=== PATIENT | female | born 1970 | race Caucasian/White ===

== ENCOUNTER → 2019-09-14 09:00 | Outpatient (BNVA) | payer BC, SELFPAY | PROVIDERS: Family Provider Internal Medicine; Visit Provider Nurse Practitioner Family | DX: R05 Cough (principal); R50.9 Fever, unspecified | CPT/HCPCS: 87400; 87635 ==

== ENCOUNTER 2019-09-16 12:31 | Emergency (ER) | payer BC, SELFPAY ==
[2019-09-16 12:32] VITALS: BP 147/98; PULSE 100; RESP 20; TEMP 36.7; O2SAT 100; BMI 23.0
--- NOTE | 2019-09-16 12:41 | XRR_ITS ---
PROCEDURE INFORMATION: Exam: XR Chest, 1 View Exam date and time: 09/16/2019 1:51 PM Age: 49 years old Clinical indication: Cough and fever and shortness of breath; Patient HX: C/O fever, nonproductive cough. Tested positive for covid along with ; Additional info: Covid - 19 TECHNIQUE: Imaging protocol: XR of the chest Views: 1 view. COMPARISON: CR Chest 2 views* [id number] 04/17/2014 2:30 PM FINDINGS: Lungs: Unremarkable. No consolidation. Pleural space: Unremarkable. No pleural effusion. No pneumothorax. Heart/Mediastinum: Unremarkable. No cardiomegaly. Bones/joints: Unremarkable. XR/XR chest 1V portable [id number] IMPRESSION: No acute findings.
--- NOTE | 2019-09-16 12:49 | W.ED.GENADLT ---
HPI - General Adult General: Chief complaint: General Medical Stated complaint: SYMPTOMATIC COVID 19 Time Seen by Provider: 09/16/19 12:41 History of Present Illness: HPI narrative: 49-year-old female who was tested positive yesterday for COVID. She comes in today complaining of fever and cough. Her initial symptoms began 7 days ago she has a nonproductive cough she is getting progressively worse she feels like she cannot take a deep breath like she has a heavy sensation in her chest she has not been able to cough anything up although it feels like she needs to. She has no chronic respiratory problems. She is non-smoker. Her exposure was at a local camp where she had camped out for the weekend with several friends with several other COVID-19 positive patients including her . She is also had some diarrhea and nosocomial. Onset (ago): day(s) (6) Location: chest Radiation: non-radiation Severity: severe Quality: dull (Chest heaviness) Relieving factors: none Exacerbating factors: none Associated symptoms: Reports chest pain, cough, diaphoresis, dyspnea, fevers/chills, headache(s), nausea and other (Nosocomial); Deny rash Treatments prior to arrival: none Review of Systems Const: Reports: diaphoresis ENMT: Denies: throat pain, ear or mastoid pain, nasal discharge or nasal congestion Card: Reports: chest pain and dyspnea on exertion; Denies: edema or orthopnea Resp: Reports: dyspnea and non-productive cough; Denies: productive cough GI: Reports: nausea and diarrhea : Denies: flank pain, difficulty voiding, dysuria, urinary frequency or urinary urgency Skin/Breast: Denies: rash or pruritus Neuro: Reports: headache(s) PFSH ED PFSH: Medical History (Updated 09/17/19 @ 11:38 by Zelda Mac APRN) Calculus of kidney and ureter Hypercholesteremia Hypertension Recurrent UTI Surgical History H/O lithotripsy History of bilateral carpal tunnel release History of ureter stent Hx of hysterectomy Hx of non-cataract eye surgery Hx of tonsillectomy Family History Sister Cancer Hypertension Mother Diabetes Hypertension Father Lung disease Social History Smoking and tobacco status: never smoked Alcohol intake: unknown Adopted: No Caregiver/support person: No Lives independently: No Household members: spouse Marital status: Current occupational status: employed History of recent travel: No Current gender identity: Female Physical Exam Const: COMMON NORMALS: no acute distress GENERAL APPEARANCE: cooperative and comfortable ORIENTATION/CONSCIOUSNESS: Yes awake, Yes oriented to person, Yes oriented to place and Yes oriented to time HENMT: COMMON NORMALS: normocephalic, atraumatic, hearing grossly normal bilaterally, external ears normal, EAC's normal, TM's normal bilaterally, Normal nasal mucous membranes and turbinates present, moist oral mucous membranes and oropharynx normal HEAD & SCALP: normocephalic and atraumatic NOSE: Normal nasal mucous membranes and turbinates present EXTERNAL EAR: Yes external ears normal EXTERNAL AUDITORY CANAL: EAC's normal TYMPANIC MEMBRANE: TM's normal bilaterally Eye: COMMON NORMALS: Equal, round and reactive pupils present, EOMs intact bilaterally, conjunctivae normal and no scleral icterus CONJUNCTIVA: Yes conjunctivae normal PUPIL: Yes Equal, round and reactive pupils present Neck/C-Spine: COMMON NORMALS: full ROM, no lymphadenopathy and supple Lymph: LYMPHATIC: no lymphadenopathy noted and no lymphedema noted Resp: AUSCULTATION: wheezes (Slightly more increased at the bases) and diminished lung sounds Cardio: COMMON NORMALS: No murmurs present (Cardio) RATE: tachycardic GI: COMMON NORMALS: Soft to palpation and No hepatosplenomegaly present AUSCULTATION: Yes normoactive bowel sounds PALPATION: Yes Soft to palpation, No Tenderness to palpation present (GI), No Guarding due to palpation present (GI) and Yes No hepatosplenomegaly present Extremity: COMMON NORMALS: normal to inspection, capillary refill normal, no clubbing, cyanosis or edema, no calf tenderness and no pedal edema Neuro: SENSORIUM/ORIENTATION: Yes oriented to person, Yes oriented to place and Yes oriented to time Skin: COMMON NORMALS: no rashes or lesions noted GENERAL SKIN EXAM: no rashes or lesions noted Course Vital Signs: Vital signs: Vital Signs Temperature 98.0 F 09/16/19 12:32 Pulse Rate 97 09/16/19 15:46 Respiratory Rate 18 09/16/19 15:46 Blood Pressure 121/83 09/16/19 15:46 Pulse Oximetry 98 09/16/19 15:46 MDM - General Adult MDM Narrative: Medical decision making narrative: Findings the patient and that she can be safely treated as an outpatient we will go ahead and discharge her home start her on albuterol inhaler to use PRN as well as dexamethasone 2 mg p.o. twice daily for 5 days. She should self quarantine for the next 14 days she absolutely has to leave her home she should wear a mask be preferable if she did not we will set up a follow-up telehealth visit with her tomorrow. Due to a problem with the EMR the dexamethasone was on her discharge instructions but was not on our prescribed scription list on my EMR note. See the discharge instructions which show the dexamethasone was prescribed. Lab Data: Labs: Lab Results 09/16/19 09/16/19 09/16/19 Range/Units 12:48 13:08 13:08 WBC 6.4 (4.0-10.0) 10^3/ uL RBC 4.12 (4.1-5.3) 10^6/u L Hgb 13.1 (11.5-15.3) g/dL Hct 38.8 (37.0-47.0) % MCV 94.2 (81-99) fL MCH 31.8 (28.0-34.0) pg MCHC 33.8 (30.0-36.0) g/dL RDW 12.4 (12.1-15.1) % Plt Count 235 (130-400) 10^3/c mm MPV 9.8 (7.4-10.4) fL Neut % (Auto) 50.5 % Lymph % (Auto) 37.3 % Nicholas % (Auto) 10.2 % Eos % (Auto) 1.6 % Baso % (Auto) 0.2 % Neut # (Auto) 3.21 (1.8-7.7) 10^3/u L Lymph # (Auto) 2.4 (0.8-4.8) 10^3/u L Nicholas # (Auto) 0.7 (0.2-0.9) 10^3/u L Eos # (Auto) 0.1 (0.0-0.8) 10^3/u L Baso # (Auto) 0.0 (0.0-0.1) 10^3/u L Nucleated RBC % (a uto) 0 % Nucleated RBCs # 0.0 /100WBC PT 11.80 (10.5-13.3) SECO NDS INR 0.85 (0.8-1.2) APTT 26.9 (23.9-36.7) SECO NDS Fibrinogen 308 (184-529) mg/dL D-Dimer 0.18 (0-0.59) ug/mIFE U Specimen Type Arterial Sample Site Radial, left ABG pH 7.39 (7.35-7.45) ABG pCO2 33.4 L (35-45) mmHg ABG pO2 100.0 (80.0-100.0) mmH g ABG HCO3 20.1 L (22-26) mmol/L ABG Base Excess -4.1 L (-2.0-2.0) mmol/ L Félix Test Pos Hematocrit 41.8 (37-47) % O2 Delivery Device Room air FiO2 21.0 % Electric Arc Furnace Operator ID cak Sodium (136-145) mmol/L Potassium (3.5-5.1) mmol/L Chloride (98-107) mmol/L Carbon Dioxide (22-29) mmol/L Anion Gap (5-19) BUN (6-20) mg/dL Creatinine (0.5-0.9) mg/dL GFR Calculation (90-130) mL/min Glucose (65-115) mg/dL Calculated Osmolal ity (285-295) mOsm/k g Lactic Acid (0.5-2.2) mmol/L Calcium (8.5-10.5) mg/dL Ferritin (15-150) ng/mL Total Bilirubin (0.15-1.2) mg/dL AST (0-32) U/L ALT (0-33) U/L Alkaline Phosphata se (35-105) IU/L Lactate Dehydrogen ase (135-214) U/L C-Reactive Protein (0.0-4.9) mg/L Total Protein (6.6-8.7) g/dL Albumin (3.5-5.2) g/dL Globulin (1.3-4.6) g/dL Procalcitonin (0-0.5) ng/mL 09/16/19 09/16/19 Range/Units 13:08 13:08 WBC (4.0-10.0) 10^3/ uL RBC (4.1-5.3) 10^6/u L Hgb (11.5-15.3) g/dL Hct (37.0-47.0) % MCV (81-99) fL MCH (28.0-34.0) pg MCHC (30.0-36.0) g/dL RDW (12.1-15.1) % Plt Count (130-400) 10^3/c mm MPV (7.4-10.4) fL Neut % (Auto) % Lymph % (Auto) % Nicholas % (Auto) % Eos % (Auto) % Baso % (Auto) % Neut # (Auto) (1.8-7.7) 10^3/u L Lymph # (Auto) (0.8-4.8) 10^3/u L Nicholas # (Auto) (0.2-0.9) 10^3/u L Eos # (Auto) (0.0-0.8) 10^3/u L Baso # (Auto) (0.0-0.1) 10^3/u L Nucleated RBC % (a uto) % Nucleated RBCs # /100WBC PT (10.5-13.3) SECO NDS INR (0.8-1.2) APTT (23.9-36.7) SECO NDS Fibrinogen (184-529) mg/dL D-Dimer (0-0.59) ug/mIFE U Specimen Type Sample Site ABG pH (7.35-7.45) ABG pCO2 (35-45) mmHg ABG pO2 (80.0-100.0) mmH g ABG HCO3 (22-26) mmol/L ABG Base Excess (-2.0-2.0) mmol/ L Félix Test Hematocrit (37-47) % O2 Delivery Device FiO2 % Electric Arc Furnace Operator ID Sodium 141 (136-145) mmol/L Potassium 3.7 (3.5-5.1) mmol/L Chloride 107 (98-107) mmol/L Carbon Dioxide 22 (22-29) mmol/L Anion Gap 15.7 (5-19) BUN 16 (6-20) mg/dL Creatinine 0.8 (0.5-0.9) mg/dL GFR Calculation 76.2 L (90-130) mL/min Glucose 82 (65-115) mg/dL Calculated Osmolal ity 287 (285-295) mOsm/k g Lactic Acid 0.6 (0.5-2.2) mmol/L Calcium 9.4 (8.5-10.5) mg/dL Ferritin 168 H (15-150) ng/mL Total Bilirubin 0.3 (0.15-1.2) mg/dL AST 19 (0-32) U/L ALT 20 (0-33) U/L Alkaline Phosphata se 63 (35-105) IU/L Lactate Dehydrogen ase 157 (135-214) U/L C-Reactive Protein 0.8 (0.0-4.9) mg/L Total Protein 7.0 (6.6-8.7) g/dL Albumin 4.3 (3.5-5.2) g/dL Globulin 2.7 (1.3-4.6) g/dL Procalcitonin 0.05 (0-0.5) ng/mL Discharge Plan Discharge Patient Disposition: Home, Self-Care Clinical Impression: Acute bronchitis due to COVID-19 virus Condition: Stable Prescriptions: New albuterol sulfate 90 mcg/actuation HFA aerosol inhaler 2 inh INHALATION Q4H PRN (Reason: shortness of breath or wheezing) Qty: 18 RF: 0 No Action bupropion HCl [Wellbutrin XL] 300 mg tablet extended release 24 hr 300 mg PO QAM RF: 0 alprazolam [Xanax] 0.5 mg tablet 0.5 mg PO TID PRN (Reason: unknown) RF: 0 thyroid (pork) [FILLING MIXER Thyroid] 120 mg tablet 120 mg PO DAILY RF: 0 cholecalciferol (vitamin D3) 10,000 unit tablet 10,000 unit PO DAILY RF: 0 fluticasone propionate [Flonase Allergy Relief] 50 mcg/actuation spray,suspension 2 spray INTRANASAL DAILY Qty: 16 RF: 0 benzonatate [Tessalon Perles] 100 mg capsule 100 mg PO TID PRN (Reason: cough) 7 Days Qty: 20 RF: 0 dextromethorphan-guaifenesin 60-1,200 mg tablet extended release 12 hr 1 tab PO Q12H 7 Days Qty: 14 RF: 0 topiramate 100 mg tablet 100 mg PO BID 30 Days Qty: 60 RF: 3 azithromycin 250 mg tablet See Rx Instructions PO .COMPLEX Qty: 6 RF: 0 Multiple Vitamins Tablet 1 tab PO DAILY RF: 0 phentermine 37.5 mg tablet 37.5 mg PO DAILY RF: 0 Cbd Oil 1 drp PO DAILY RF: 0 biotin 1 cap PO DAILY RF: 0 lisinopril 20 mg tablet 20 mg PO DAILY RF: 0 Discharge Orders: Discharge Order (Routine); Ordered 09/16/19 Ordered By: John Shaw Referrals: Bean Quintero MD [Physician] - (COVID-19 followup) Activity Restrictions/Additional Instructions: You should remain self quarantined until released by physician. Start the dexamethasone twice daily for 5 days albuterol inhaler as needed for shortness of breath and cough. If your breathing significantly worsens return to the emergency room. If you do need to return to the emergency room or call 911 please call ahead to inform personnel that you have tested positive for COVID-19. If you must leave your home for any reason please wear a mask. Discharge Date/Time: 09/16/19 15:46 Coding Level of Care Code ED Restoration Technician for Chg Fwd Exam Comprehensive
[2019-09-16 12:59] LABS: ABG PCO2 33.4 mmHg (35-45); ABG PH Result 7.39 (7.35-7.45); Arterial Blood Gas Hematocrit 41.8 % (37-47); Base Excess ABG -4.1 mmol/L (-2.0-2.0); Blood Gas Allen Test Pos; Blood Gas Sample Site Radial, left; Blood Gas Sample Type Arterial; HCO3 ABG 20.1 mmol/L (22-26); Oxygen Device ROOM AIR
[2019-09-16] MEDS: ondansetron 2 mg/ML SDV 2 mL 4 MG IV (13:01)
[2019-09-16 13:15] VITALS: O2SAT 100
--- NOTE | 2019-09-16 13:22 | PC.NURSE ---
pt refuses FLU swab to be collected. ED physician notified.
[2019-09-16 13:29] LABS: Basophils % 0.2 %; Eosinophils # 0.1 10^3/uL (0.0-0.8); Eosinophils % 1.6 %; Hematocrit 38.8 % (37.0-47.0); Hemoglobin 13.1 g/dL (11.5-15.3); Lymphocytes # 2.4 10^3/uL (0.8-4.8); Lymphocytes % 37.3 %; Mean Corpuscular HGB Conc 33.8 g/dL (30.0-36.0); Mean Corpuscular Hemoglobin 31.8 pg (28.0-34.0); Mean Corpuscular Volume 94.2 fL (81-99); Mean Platelet Volume 9.8 fL (7.4-10.4); Monocytes # 0.7 10^3/uL (0.2-0.9); Monocytes % 10.2 %; Neutrophils # 3.21 10^3/uL (1.8-7.7); Neutrophils % 50.5 %; Nucleated Red Blood Cells % 0 %; Platelet Count 235 10^3/cmm (130-400); Red Blood Count 4.12 10^6/uL (4.1-5.3); Red Cell Distribution Width 12.4 % (12.1-15.1); White Blood Count 6.4 10^3/uL (4.0-10.0)
[2019-09-16 13:46] LABS: Fibrinogen 308 mg/dL (184-529); Lactic Sepsis W/Reflex 0.6 mmol/L (0.5-2.2)
[2019-09-16 14:23] LABS: D Dimer 0.18 ug/mIFEU (0-0.59); INR 0.85 (0.8-1.2); Partial Thromboplastin Time 26.9 SECONDS (23.9-36.7)
[2019-09-16 14:38] LABS: Procalcitonin 0.05 ng/mL (0-0.5)
[2019-09-16 14:49] LABS: Alanine Aminotransferase 20 U/L (0-33); Albumin Level 4.3 g/dL (3.5-5.2); Alkaline Phosphatase 63 IU/L (35-105); Aspartate Amino Transferase 19 U/L (0-32); Blood Urea Nitrogen 16 mg/dL (6-20); C Reactive Protein 0.8 mg/L (0.0-4.9); Calcium 9.4 mg/dL (8.5-10.5); Carbon Dioxide 22 mmol/L (22-29); Chloride 107 mmol/L (98-107); Ferritin 168 ng/mL (15-150); Globulin 2.7 g/dL (1.3-4.6); Glomerular Filtration Rate 76.2 mL/min (90-130); Glucose 82 mg/dL (65-115); Osmolality Calculated 287 mOsm/kg (285-295); Sodium 141 mmol/L (136-145); Total Bilirubin 0.3 mg/dL (0.15-1.2)
[2019-09-16 14:50] LABS: Anion Gap 15.7 (5-19)
[2019-09-16 14:51] LABS: Lactate Dehydrogenase 157 U/L (135-214); Potassium 3.7 mmol/L (3.5-5.1)
[2019-09-16 15:46] VITALS: BP 121/83; PULSE 97; RESP 18; O2SAT 98
== END 2019-09-16 15:46 | disposition home or self-care (01) ==
PROVIDERS: Emergency Provider Family Medicine; PCP Internal Medicine
DX: U07.1 COVID-19 (principal); J20.8 Acute bronchitis due to other specified organisms; I10 Essential (primary) hypertension
CPT/HCPCS: 12345; 36600; 71045; 80053; 82728; 82803; 83605; 83615; 84145; 85025; 85378; 85384; 85610; 85730; 86140; 87040; 96374; 99282; 99283; J2405

== ENCOUNTER 2019-10-25 10:02 | Outpatient (CLI) | payer BC, SELFPAY ==
--- NOTE | 2019-10-25 12:15 | XR_ITS ---
WS: [id number] EXAM: ABDOMINAL KUB DATE OF EXAMINATION: 10/25/2019, 1016 hours COMPARISON: Abdominal KUB from 02/19/2018 HISTORY: Patient is 49 years old with calculus of the kidney appears FINDINGS: Bowel gas pattern is normal. Moderate amount of stool. No calcifications are seen to suggest renal or ureteral calculi. Calcification in the right false pelvis overlying the lateral mid sacrum is most l ikely a phlebolith noted on prior imaging. Solid organ silhouettes do not appear enlarged. Slight sco liosis in the spine with slight arthritis noted. XR/XR KUB [id number] IMPRESSION: No calcification seen to suggest renal or ureteral calculi.
== END 2019-10-25 10:03 | disposition home or self-care (01) ==
LOC: RAD 10:06
PROVIDERS: PCP Internal Medicine; Visit Provider Urology
DX: N20.2 Calculus of kidney with calculus of ureter (principal)
CPT/HCPCS: 74018; 81001

== ENCOUNTER 2021-01-04 09:52 | Outpatient (CLI) | payer OTHER, BC, SELFPAY ==
--- NOTE | 2021-01-04 09:58 | XR_ITS ---
WS: [id number] Exam: XR KUB [id number] Date/Time of Exam: 01/04/2021 9:58 AM Reason For Exam: CALCULUS OF KIDNEY Comparison 10/25/2019. No bowel obstruction or free air. No calcifications noted in the region of the kidneys. Several small left paraspinal calcifications are noted at the L3 level and may be vascular in nature. These have n ot changed. Small nonspecific pelvic calcifications. Moderate amount stool in the rectosigmoid colon and left colon. Levoscoliosis of the thoracolumbar junction. Old compression fracture of T12. XR/XR KUB [id number] IMPRESSION: 1. No acute abdominal process. 2. No calcifications noted in the region of the kidneys. Additional nonspecific minor findings as above.
== END 2021-01-04 09:53 | disposition home or self-care (01) ==
PROVIDERS: PCP Internal Medicine; Visit Provider Urology
DX: N20.0 Calculus of kidney (principal)
CPT/HCPCS: 74018; 81003

== ENCOUNTER → 2021-01-10 10:03 | Outpatient (BNVA) | payer OTHER, SELFPAY | PROVIDERS: PCP Internal Medicine; Visit Provider Internal Medicine | DX: I10 Essential (primary) hypertension (principal); E03.9 Hypothyroidism, unspecified | CPT/HCPCS: 80053; 84443 ==

== ENCOUNTER 2021-12-04 08:08 | Outpatient (CLI) | payer OTHER, SELFPAY ==
--- NOTE | 2021-12-04 08:15 | MM_ITS ---
WS: [id number] DIAGNOSTIC BILATERAL DIGITAL BREAST TOMOSYNTHESIS MAMMOGRAPHY WITH CAD LEFT breast ultrasound, limited HISTORY: N64.4 - Mastodynia COMPARISON: 12/11/2018 and 05/26/2015 TECHNIQUE: Bilateral craniocaudad, mediolateral oblique, and mediolateral views are submitted with to mosynthesis and SM. Spot compression LEFT MLO. Computer aided detection utilized. Breast composition: The breasts are heterogeneously dense, which may obscure small masses. Scattered asymmetries are stable. No mass or architectural distortion. Ultrasound will be directed to the area of pain within the LEFT breast. LEFT breast ultrasound, limited. Ultrasound directed to the area of pain as indicated by the patient. Along the 6-7 o'clock axis ther e is no mass or skin thickening. No increased vascularity or distortion. MM/[place] [id number] IMPRESSION: BI-RADS: 2-Benign FOLLOW UP: 1 Year Follow-up
== END 2021-12-04 08:09 | disposition home or self-care (01) ==
LOC: RAD 08:10
PROVIDERS: PCP Internal Medicine; Visit Provider Nurse Practitioner Women's Health
DX: N64.4 Mastodynia (principal)
CPT/HCPCS: 76642; 77062

== ENCOUNTER 2022-05-08 06:31 | Day surgery (SDC) | payer OTHER, SELFPAY ==
[2022-05-06 09:50] VITALS: BMI 22.8
[2022-05-08 06:54] VITALS: BP 154/102; PULSE 117; RESP 18; TEMP 36.2; O2SAT 98
[2022-05-08] MEDS: sodium chloride 0.9% 1,000 ML 30 ML IV (07:00)
--- NOTE | 2022-05-08 07:07 | P.ANESASSM_ITS ---
Pre-Anesthetic Assessment Height/Weight: Height 1.63 m Weight 60.328 kg Temp Pulse Resp BP Pulse Ox O2 Del Method 97.1 F L 117 H 18 154/102 98 05/08/22 06:54 05/08/22 06:54 05/08/22 06:54 05/08/22 06:54 05/08/22 06:54 05/08/22 06:54 Preop Diagnosis: screening Operation Date: 05/08/22 08:00 Proposed Procedures p Colonoscopy 03775,Z12.11(Not Applicable) - Tawanda Yeager DO Familial anesthetic complications: none Was Beta Eyal taken within 24 hours: N/A Was Clonidine taken within 24 hours: N/A Last intake: Intake Last Liquid Date 05/07/22 Last Liquid Time 22:00 Last Solid Date 05/06/22 Last Solid Time 20:00 Last Intake: 22:00 Social No alcohol and No tobacco Exam alert, oriented x 3, clear to auscultation bilaterally and regular rate & rhythm Airway Submandibular: within normal limits Cervical ROM: within normal limits Mallampati: Class II Dentition: false (upper) Pulmonary None reported CV/HEM Hypertension None reported Hepatic None reported GI None reported Metabolic Thyroid Disease [facility] None reported Neuropsych Anxiety, Depression and Headache (monthly) Anesthetic Plan ASA status: 2 Anesthesia: MAC Medications/Allergies Home Medications Medication Instructions Recorded Confirmed Last Taken Type alprazolam 0.5 mg tablet (Xanax) 0.5 mg PO TID PRN Anxiety 06/16/19 05/06/22 05/07/22 History bupropion HCl 300 mg 24 hr tablet, 300 mg PO QAM 06/16/19 05/06/22 05/07/22 History extended release (Wellbutrin XL) biotin 1 cap PO DAILY 09/16/19 05/06/22 05/07/22 History multivitamin (Multiple Vitamins 1 tab PO DAILY 09/16/19 05/06/22 05/07/22 History tablet) phentermine 37.5 mg tablet 37.5 mg PO DAILY 09/16/19 05/06/22 05/07/22 History topiramate 100 mg tablet 100 mg PO BID 30 days #60 tabs 10/29/21 05/06/22 05/07/22 Rx thyroid (pork) 90 mg tablet 120 mg PO DAILY 01/01/22 05/06/2223 History celecoxib 200 mg capsule (Celebrex) 200 mg PO BID #60 caps 01/03/22 05/06/22 05/07/22 Rx Medical Marijuana 1 applic inhalation PRN PRN 05/06/22 05/08/22 1 Month Ago History Migraine Headache ~04/05/22 lisinopril 20 mg tablet 20 mg PO DAILY 05/06/22 05/06/22 05/07/22 History hydrocortisone 2.5 % topical cream 1 applic MT QID 10 days #30 grams 05/08/22 Unknown Rx with perineal applicator (Procto-Med HC) Allergies Allergy/AdvReac Type Severity Reaction Status Date / Time Sulfa (Sulfonamide Allergy ALGY-Hives Verified 05/06/22 09:37 Antibiotics) Current Medications Generic Name Dose Route Start Last Admin Trade Name Freq PRN Reason Stop Dose Admin Sodium Chloride 1,000 mls @ 30 mls/hr 05/08/22 06:45 05/08/22 07:00 Sodium Chloride 0.9% IV 05/09/22 06:44 30 mls/hr .Q24H SUJATA Administration PFSH Anesthesia Medical History Acute bronchitis due to COVID-19 virus Follow up in 1 week. Calculus of kidney and ureter Hypercholesteremia Hypertension No pertinent past medical history neghx: dm,dvt/pe PCP: Dr. Rock Recurrent UTI Urolithiasis Surgical History H/O lithotripsy History of bilateral carpal tunnel release History of delivery 07/01/2003, Performed by Dr. Joaquín Valladares at [facility] in [place], [place] 12/27/[address] Carranza at [facility] in [place], [place] History of ureter stent Hx of hysterectomy (~04/30/16) LAVH/BSO/ALECIA. Diagnosis: Menometrorrhagia, Dysmenorrhea, Uterine fibroids, Pelvic endometriosis. Performed by Dr. Joaquín Valladares at [facility] in [place], [place]. Hx of non-cataract eye surgery Hx of tonsillectomy Family History Sister Hypertension Hypercholesteremia Cervical cancer dx age 50's Mother Diabetes Hypertension Stroke Thyroid disease Father No problems noted. Denies family history of Colon cancer Ovarian cancer Heart disease Breast cancer Uterine cancer Social History Smoking and tobacco status: never smoked Data Anesthesia Cardiac Studies: No Data to Display
--- NOTE | 2022-05-08 08:41 | PM.HP ---
Providers/Chief Complaint Primary Care Provider: Jose Gonzalez MD Chief Complaint: Z12.11 History of Present Illness Hortencia Rowley is a 52 year old female who is here for her first screening colonoscopy. She reports that she has no abdominal pain, nausea, emesis, diarrhea, constipation, hematochezia and/or melena. She denies any family history of colon cancer Review of Systems General: Reports: 10 or more systems reviewed and unremarkable except in HPI and below Medications/Allergies Home Medications Medication Instructions Recorded Confirmed Last Taken Type alprazolam 0.5 mg tablet (Xanax) 0.5 mg PO TID PRN Anxiety 06/16/19 05/06/22 05/07/22 History bupropion HCl 300 mg 24 hr tablet, 300 mg PO QAM 06/16/19 05/06/22 05/07/22 History extended release (Wellbutrin XL) biotin 1 cap PO DAILY 09/16/19 05/06/22 05/07/22 History multivitamin (Multiple Vitamins 1 tab PO DAILY 09/16/19 05/06/22 05/07/22 History tablet) phentermine 37.5 mg tablet 37.5 mg PO DAILY 09/16/19 05/06/22 05/07/22 History topiramate 100 mg tablet 100 mg PO BID 30 days #60 tabs 10/29/21 05/06/22 05/07/22 Rx thyroid (pork) 90 mg tablet 120 mg PO DAILY 01/01/22 05/06/22 05/07/22 History celecoxib 200 mg capsule (Celebrex) 200 mg PO BID #60 caps 01/03/22 05/06/22 05/07/22 Rx Medical Marijuana 1 applic inhalation PRN PRN 05/06/22 05/08/22 1 Month Ago History Migraine Headache ~04/05/22 lisinopril 20 mg tablet 20 mg PO DAILY 05/06/22 05/06/22 05/07/22 History Allergies Allergy/AdvReac Type Severity Reaction Status Date / Time Sulfa (Sulfonamide Allergy ALGY-Hives Verified 05/06/22 09:37 Antibiotics) PFSH Acute PFSH: Medical History Acute bronchitis due to COVID-19 virus Follow up in 1 week. Calculus of kidney and ureter Hypercholesteremia Hypertension No pertinent past medical history neghx: dm,dvt/pe PCP: Dr. Rock Recurrent UTI Urolithiasis Surgical History H/O lithotripsy History of bilateral carpal tunnel release History of delivery 07/01/2003, Performed by Dr. Joaquín Valladares at [facility] in [place], [place] 12/27/[address] Carranza at [facility] in [place], [place] History of ureter stent Hx of hysterectomy (~04/30/16) LAVH/BSO/ALECIA. Diagnosis: Menometrorrhagia, Dysmenorrhea, Uterine fibroids, Pelvic endometriosis. Performed by Dr. Joaquín Valladares at [facility] in [place], [place]. Hx of non-cataract eye surgery Hx of tonsillectomy Family History Sister Hypertension Hypercholesteremia Cervical cancer dx age 50's Mother Diabetes Hypertension Stroke Thyroid disease Father No problems noted. Denies family history of Colon cancer Ovarian cancer Heart disease Breast cancer Uterine cancer Social History Smoking and tobacco status: never smoked Vitals/I&O/Wt Last Vital Signs Temp 97.1 F L 05/08/22 06:54 Pulse 117 H 05/08/22 06:54 Resp 18 05/08/22 06:54 BP 154/102 05/08/22 06:54 Pulse Ox 98 05/08/22 06:54 O2 Del Method 05/08/22 06:54 Weight last 48 hrs Weight 133 lb A&P Assessment and plan (1) Colon cancer screening: Plan Colonoscopy The risks and benefits of the procedure, including bleeding, infection, intestinal perforation requiring surgery, missed lesion were explained to the patient. The patient is understanding of the risks and wishes to proceed. Attestations Medical Necessity Statement*: Home Coding Level of Care Code Acute Code for Chg Fwd Diagnoses Colon cancer screening Z12.11
[2022-05-08 08:57] VITALS: BP 111/72; PULSE 92; RESP 18; TEMP 36.6; O2SAT 96
[2022-05-08 09:19] VITALS: BP 125/76; PULSE 97; TEMP 36.3; O2SAT 96
--- NOTE | 2022-05-08 13:05 | ANE.PACU2 ---
Inpatient post-anesthesia follow up: Airway intact: Yes Vital signs: Temperature 97.4 F Pulse Rate 97 Respiratory Rate 18 Blood Pressure 125/76 Pulse Oximetry 96 Oxygen Delivery Me thod Room Air Oxygen Flow Rate Fraction of Inspir ed Oxygen Hydration adequate: Yes Nausea and vomiting: No Pain level: 2 Mental status: Baseline
== END 2022-05-08 09:39 | disposition home or self-care (01) ==
PROVIDERS: Family Provider Nurse Practitioner Women's Health; PCP Family Medicine; Visit Provider Surgery
PROC: 0DJD8ZZ Inspection of Lower Intestinal Tract, Via Natural or Artificial Opening Endoscopic (ICD-10-PCS; CPT 45378; principal; 2022-05-08 08:00)
DX: Z12.11 Encounter for screening for malignant neoplasm of colon (principal); K64.8 Other hemorrhoids; Z86.16 Personal history of COVID-19; I10 Essential (primary) hypertension
CPT/HCPCS: 45378; J2704; J7030

== ENCOUNTER 2023-03-26 09:23 | Outpatient (CLI) | payer OTHER, SELFPAY ==
--- NOTE | 2023-03-26 09:37 | MM_ITS ---
WS: [id number] SCREENING DIGITAL TOMOSYNTHESIS MAMMOGRAM WITH CAD HISTORY: Z12.31 - Encounter for screening mammogram for malignant ... COMPARISON: 12/04/2021 and 01/04/2019 Bilateral CC and MLO with tomosynthesis views submitted. Synthetic mammography reviewed. Computer aid ed detection analyzed. Breast composition: There are scattered areas of fibroglandular density. No suspicious masses, microc alcifications or architectural distortion. Benign lymph nodes in the axillary tails of each breast. IMPRESSION: MM/[place] [id number] BI-RADS: 2-Benign FOLLOW UP: 1 Year Follow-up
== END 2023-03-26 09:24 | disposition home or self-care (01) ==
PROVIDERS: Family Provider Nurse Practitioner Women's Health; PCP Family Medicine; Visit Provider Nurse Practitioner Women's Health
DX: Z12.31 Encounter for screening mammogram for malignant neoplasm of breast (principal)
CPT/HCPCS: 77063; 77067

== ENCOUNTER 2023-05-09 14:08 | Emergency (ER) | payer OTHER, SELFPAY ==
[2023-05-09 14:12] VITALS: BP 126/82; PULSE 87; RESP 16; TEMP 36.3; O2SAT 100
--- NOTE | 2023-05-09 14:20 | W.ED.UPPEXIN ---
HPI - Extremity Injury (Upper) General: Chief Complaint: Wound/Laceration Stated Complaint: lac left middle and ring Time Seen by Provider: 05/09/23 14:13 Source: patient Mode of arrival: ambulatory Limitations: no limitations History of Present Illness: Patient is a 53-year-old female presents to ED today for evaluation of trauma to her left third and fourth digits that she sustained just prior to arrival after she got them caught in some type of camper awning. Last tetanus is unknown. MD complaint: injury to: left and finger Onset (ago): hour(s) Other Extremity Injury: Left: fingers Other injuries: none Place: home Severity: moderate Relieving factors: none Exacerbating factors: none Context: direct blow, laceration and crush Associated symptoms: Reports no associated symptoms Review of Systems Musc: Reports: extremity pain (L fingers) Skin/Breast: Reports: other (laceration L fingers) [facility] ED PFSH: Medical History No pertinent past medical history neghx: dm,dvt/pe PCP: Dr. Gonzalez Urolithiasis Hypercholesteremia Hypertension Calculus of kidney and ureter Surgical History History of delivery 07/01/2003, [address]formed [address] Joaquín Valladares at [facility] in [place], [place] 12/27/[address] Carranza at [facility] in [place], [place] Hx of hysterectomy (~04/30/16) LAVH/BSO/ALECIA. Diagnosis: Menometrorrhagia, Dysmenorrhea, Uterine fibroids, Pelvic endometriosis. Performed by Dr. Joaquín Valladares at [facility] in [place], [place]. H/O lithotripsy Hx of tonsillectomy History of ureter stent History of bilateral carpal tunnel release Hx of non-cataract eye surgery Family History Sister Hypertension Hypercholesteremia Cervical cancer dx age 50's Mother Diabetes Hypertension Stroke Thyroid disease Father No problems noted. Denies family history of Colon cancer Ovarian cancer Heart disease Breast cancer Uterine cancer Physical Exam Const: COMMON NORMALS: no acute distress, average body habitus, patient oriented x3, no limitations, alert and well nourished Extremity: GENERAL: Yes normal exam except as noted LEFT UPPER EXTREMITY: Yes hand & digits (see below) Left hand and digits: Yes neurovascular exam (normal) OTHER: pt has a laceration through her L ring fingernail into nail bed-no damage to nail fold; nail has an acrylic artificial nail attached which was removed there is a laceration through the acrylic portion of the L middle fingernail with minimal extension into nail bed-this does not require repair; no damage to nail fold Neuro: COMMON NORMALS: patient oriented x3, moves all extremities, no focal motor deficits and no sensory deficits noted SENSORIUM/ORIENTATION: Yes alert Procedures Laceration Laceration 1: Site: hand (4th finger) Side (If applicable): left Size (cm): 1.25 Description: irregular Depth: simple, single layer Local Anesthetic: lidocaine 1% (digital block) Amount of anesthesia used (mL): 2.5 Pre-repair: wound explored and irrigated extensively Skin layer closed with: nylon Size (cm): 4-0 Number of sutures: 4 Technique: simple, interrupted Course Vital Signs: Vital signs: Vital Signs Temperature 97.4 F L 05/09/23 14:12 Pulse Rate 86 05/09/23 15:10 Respiratory Rate 16 05/09/23 15:10 Blood Pressure 126/82 05/09/23 14:12 Pulse Oximetry 97 05/09/23 15:10 Oxygen Delivery Me thod Room Air 05/09/23 14:12 MDM - Extremity Injury (Upper) Medical Decision Making Wounds were copiously irrigated and repaired as documented. Acrylic nail to the third and fourth digits were removed-patient's natural nail was thin and frail from years of artificial nail wearing. Nail bed of the fourth digit was repaired. XR showing tuft fractures of both digits. Tetanus was updated. She was given 1g Ancef. Patient will be placed on pain meds and antibiotics for home. Fingers will be splinted. She will follow-up with orthopedics for further evaluation and management. Return ED precautions given. Medical Records I reviewed the patient's medical records. All radiology interpretation(s) finalized by discharge Discharge Plan Discharge Patient Disposition: Home Clinical Impression: Open displaced fracture of distal phalanx of ring finger Qualifiers: Encounter type: initial encounter Laterality: left Qualified Code(s): S62.635B - Displaced fracture of distal phalanx of left ring finger, initial encounter for open fracture Closed fracture of distal phalanx of middle finger Qualifiers: Encounter type: initial encounter Fracture alignment: nondisplaced Laterality: left Qualified Code(s): S62.663A - Nondisplaced fracture of distal phalanx of left middle finger, initial encounter for closed fracture Condition: Stable Prescriptions: New hydrocodone-acetaminophen 5-325 mg tablet 1 tab PO Q6H PRN (Reason: pain) Qty: 14 0RF cephalexin 500 mg capsule 500 mg PO Q6H 7 Days Qty: 28 0RF No Action alprazolam [Xanax] 0.5 mg tablet 0.5 mg PO TID PRN (Reason: Anxiety) thyroid (pork) 90 mg tablet 120 mg PO DAILY Rx Instructions: recheck tsh in 6 weeks duloxetine [Cymbalta] 20 mg capsule,delayed release(DR/EC) 20 mg PO DAILY DIM PO DAILY [id number] 800 mcg DFE- 150 mcg tablet PO DAILY Methyl Factor PO DAILY BIOTE HRT PELLETS percutaneous cholecalciferol (vitamin D3) 250 mcg (10,000 unit) capsule 250 mcg PO DAILY topiramate 100 mg tablet 100 mg PO BID 30 Days Qty: 60 3RF celecoxib [Celebrex] 200 mg capsule 200 mg PO BID Qty: 60 3RF multivitamin [Multiple Vitamins] Tablet 1 tab PO DAILY phentermine 37.5 mg tablet 37.5 mg PO DAILY biotin 1 cap PO DAILY lisinopril 20 mg tablet 20 mg PO DAILY Rx Instructions: Take 1 tablet by mouth once daily Medical Marijuana 1 applic inhalation PRN PRN (Reason: Migraine Headache) Discharge Orders: Discharge ED (Routine); Ordered 05/09/23 Ordered By: Tyra Hernandez Referrals: Jose Gonzalez MD [Primary Care Provider] - Patient Instructions: Fractures - Phalanx (Finger), Finger Fracture (ED), Opioid Safety, Pain Management Activity Restrictions/Additional Instructions: As we discussed keep wounds clean with warm soap and water multiple times daily. Monitor for signs of infection such as redness, swelling, streaking into your hand, fevers, purulent drainage. Please seek medical reevaluation if these occur. Case management should contact you next week to help set you up with your follow-up orthopedic appointment. They will remove sutures on this visit. You need to wear finger splints at all times apart from showering or bathing as the distal aspect of your fingers are fractured. Coding Level of Care Code ED Bin Piler for Mandi Nam
--- NOTE | 2023-05-09 14:41 | XR_ITS ---
WS: [id number] Exam: XR hand LT min 3V* [id number] Date/Time of Exam: 05/09/2023 2:44 PM Reason For Exam: trauma; attention 3-4 digits There is an avulsion fracture of the distal tuft of the fourth finger with distal separation of the f racture fragment. There is also a nondisplaced fracture of the distal tuft of the third finger. No ot her acute fractures are identified. No soft tissue foreign bodies. Minimal degenerative changes of th e DIP joints. Moderate DJD at the CMC joint of the thumb. IMPRESSION: 1. Fractures of the distal jose of the third and fourth fingers as discussed above. 2. Degenerative changes.
[2023-05-09 14:55] VITALS: RESP 16; O2SAT 100
[2023-05-09] MEDS: morphine 4 mg/mL SDV 1 mL IM (14:55)
[2023-05-09] MEDS: tetanus-dipt-pertussis 0.5 mL SDV IM (14:56)
[2023-05-09 15:10] VITALS: PULSE 86; RESP 16; O2SAT 97
[2023-05-09] MEDS: ceFAZolin 1,000 MG in water for injection-sterile 2.5 ML 1 MG IM (16:08)
--- NOTE | 2023-05-09 16:12 | PC.NURSE ---
splint applied to L ring and middle finger. wounds clean, dry, and dressed.
[2023-05-09 16:13] VITALS: PULSE 86; RESP 16; O2SAT 97
--- NOTE | 2023-05-13 14:39 | PC.SOCIAL ---
Ortho Referral Referral to ortho clinic at this time; clinic to contact patient with appt date/time.
== END 2023-05-09 16:14 | disposition home or self-care (01) ==
PROVIDERS: Emergency Provider Physician Assistant; PCP Family Medicine
DX: S62.635B Displaced fracture of distal phalanx of left ring finger, initial encounter for open fracture (principal); S62.663A Nondisplaced fracture of distal phalanx of left middle finger, initial encounter for closed fracture; I10 Essential (primary) hypertension; W23.0XXA Caught, crushed, jammed, or pinched between moving objects, initial encounter; Z23 Encounter for immunization
CPT/HCPCS: 12001; 73130; 90715; 96372; 99284; J0690; J2270

== ENCOUNTER → 2023-05-19 15:40 | Outpatient (BNVA) | payer OTHER, SELFPAY | PROVIDERS: PCP Family Medicine; Referring Provider Physician Assistant; Visit Provider Nurse Practitioner | DX: S62.635B Displaced fracture of distal phalanx of left ring finger, initial encounter for open fracture; S62.663A Nondisplaced fracture of distal phalanx of left middle finger, initial encounter for closed fracture; S69.92XA Unspecified injury of left wrist, hand and finger(s), initial encounter; W23.0XXA Caught, crushed, jammed, or pinched between moving objects, initial encounter | CPT/HCPCS: 73130 ==

== ENCOUNTER 2025-02-07 13:13 | Outpatient (CLI) | payer OTHER, SELFPAY ==
--- NOTE | 2025-02-07 13:30 | XR_ITS ---
WS: [id number] SCREENING DEXA SCAN [employer] CLINICAL INFORMATION: Z78.0 - Asymptomatic menopausal state COMPARISON: None. FINDINGS: The L1-L4 bone mineral density measures 1.096 g/cm2. This corresponds to a T score score of -0.7 and Z score of -0.2. Left femoral neck bone mineral density measures 0.747 g/cm2. This corresponds to a T score of -2.1 and Z score of -1.6. Right femoral neck bone mineral density measures 0.783 g/cm2. This corresponds to a T score -1.8of and Z score of -1.3. Mean femoral neck bone mineral density measures 0.765 g/cm2. This corresponds to a T score of -1.9 and Z score of -1.5. XR/XR DEXA axial skeleton* [id number] IMPRESSION: Normal bone mineralization lumbar spine. Osteopenia femoral necks. Patient's FRAX calculated 10 year probability for major osteoporotic fracture i s 17.3% and osteoporotic hip fracture is 2.0%.
--- NOTE | 2025-02-07 14:20 | MM_ITS ---
WS: [id number] BILATERAL 3D TOMOSYNTHESIS DIGITAL SCREENING MAMMOGRAPHY WITH CAD CLINICAL INFORMATION: Z12.31 - Encounter for screening mammogram for malignant ... HISTORY: Screening mammogram. No current complaints. COMPARISON: 2023 TECHNIQUE: Bilateral CC and MLO views. FINDINGS: Scattered fibroglandular densities bilaterally. No suspicious focal mass, asymmetry, calcifications, or architectural distortion. No evidence of malignancy. A few incidental intramammary lymph nodes. MM/MM [facility] tomosynthesis [id number] IMPRESSION: DENSITY: There are scattered areas of fibroglandular density. BI-RADS: 2 - Benign. FOLLOW UP: 1 Year Follow-up Recommend return to annual screening mammography.
== END 2025-02-07 13:14 | disposition home or self-care (01) ==
LOC: RAD 13:14
PROVIDERS: PCP Family Medicine; Visit Provider Nurse Practitioner Women's Health
DX: Z12.31 Encounter for screening mammogram for malignant neoplasm of breast (principal); Z13.820 Encounter for screening for osteoporosis; Z78.0 Asymptomatic menopausal state; R92.323 Mammographic fibroglandular density, bilateral breasts; R59.0 Localized enlarged lymph nodes; M85.89 Other specified disorders of bone density and structure, multiple sites
CPT/HCPCS: 77063; 77067; 77080